=== PATIENT | female | born 1980 | race Caucasian/White ===

== ENCOUNTER → 2016-09-30 | Outpatient (CLI) | payer OTHER ==
[2016-09-30 08:12] LABS: CH 31.6; CHCM 34.1; HCT 43.5 % (34.0-46.0); HDW 2.45; HGB 14.5 gm/dL (11.4-16.0); MCHC 33.3 g/dL (31.0-37.0); Mean Platelet Volume 7.7; RBC 4.68 m/uL (3.80-5.40); RDW 12.6 % (11.5-15.5); WBC 3.8 k/uL (3.8-10.6)
[2016-09-30 08:19] LABS: INR 1.1 (<1.1); Partial Thromboplastin Time 26.7 sec (22.0-30.0); Prothrombin Time 10.9 sec (9.0-12.0)
[2016-09-30 08:21] LABS: ALT 39 U/L (9-52); AST 31 U/L (14-36); Alkaline Phosphatase 61 U/L (38-126); Anion Gap 9 mmol/L; Blood Urea Nitrogen 18 mg/dL (7-17); Calcium 9.2 mg/dL (8.4-10.2); Carbon Dioxide 25 mmol/L (22-30); Chloride 106 mmol/L (98-107); Glucose 90 mg/dL (74-99); Non-African American GFR(MDRD) >60 (>60 ml/min/1.73 sqM); Potassium 4.6 mmol/L (3.5-5.1); Sodium 140 mmol/L (137-145); Total Bilirubin 0.9 mg/dL (0.2-1.3); Total Protein 7.4 g/dL (6.3-8.2)
== END | disposition home or self-care (01) ==
LOC: LABWHC1 07:44
PROVIDERS: ATTEND Plastic Surgery Plastic Surgery Within the Head and Neck
DX: Z01.812 Encounter for preprocedural laboratory examination (principal); Z13.0 Encounter for screening for diseases of the blood and blood-forming organs and certain disorders involving the immune mechanism
CPT/HCPCS: 36415; 80053; 85027; 85610; 85730

== ENCOUNTER → 2017-03-07 | Outpatient (CLI) | payer OTHER ==
--- NOTE | 2017-03-07 10:10 | MR ---
EXAMINATION TYPE: MR shoulder RT wo con DATE OF EXAM: 03/07/2017 COMPARISON: 01/22/2010 HISTORY: 37-year-old female with right shoulder pain, RTC tear TECHNIQUE: Multiplanar, multisequence imaging of the right shoulder is performed without contrast. FINDINGS: Intermediate signal within the intracapsular portion of the long biceps tendon. The extracapsular por tion remains intact and appropriate situated along the bicipital groove. There is some intrasubstance tearing of the anterior third subscapularis tendon. The tendon is mildly thickened. AC joint is intact. No significant mass effect on the underlying cuff. Thickening and inhomogeneous signal within both supraspinatus and infraspinatus tendons. No high-grad e partial or full-thickness tear is seen. There is a mild subacromial/subdeltoid bursal effusion. No atrophy of the rotator cuff musculature. Evaluation of the glenohumeral joint shows new irregular signal within the superior labrum extending back from the biceps anchor. There is persistent tear of the posterior labrum extending down to the p osterior aspect of the inferior labrum. The previous extensive spinoglenoid groove and suprascapular notch paralabral cyst has resolved. Physiologic joint effusion. Subchondral cystic change along the anterior inferior glenoid suggesting developing osteoarthritic ch eriberto. No Hill-Sachs deformity or os acromiale. No suspicious bone marrow replacement. IMPRESSION: 1. Diffuse rotator cuff tendinosis. There is some intrasubstance tearing within the subscapularis ten don. No high-grade partial or full-thickness rotator cuff tear. No muscle atrophy. 2. Persistent posterior labral tear now with tear of the superior labrum extending back from the nafisa ps anchor. However, the previous large paralabral cyst has resolved. 3. Interval development of osteoarthritic changes with subchondral cysts along the anterior-inferior glenoid. 4. Mild subacromial/subdeltoid bursal effusion could be reactive or could represent a bursitis. 5. Mild intracapsular long head biceps tendinosis.
== END | disposition home or self-care (01) ==
LOC: RADMRIMAIN 07:32
PROVIDERS: ATTEND Orthopaedic Surgery
DX: S46.011A Strain of muscle(s) and tendon(s) of the rotator cuff of right shoulder, initial encounter (principal); S43.491A Other sprain of right shoulder joint, initial encounter; M67.813 Other specified disorders of tendon, right shoulder; M19.011 Primary osteoarthritis, right shoulder; M85.611 Other cyst of bone, right shoulder

== ENCOUNTER → 2018-07-14 | Outpatient (CLI) | payer OTHER ==
[2018-07-14 18:38] LABS: Albumin 4.5 g/dL (3.80-4.90); Albumin/Globulin Ratio 1.88 (1.60-3.17); Anion Gap 6.9 mmol/L (4.00-12.00); Carbon Dioxide 26.1 mmol/L (21.6-31.8); Globulin 2.4 g/dL (1.6-3.3); LDL Cholesterol,Calculated 67.6 mg/dL (0.0-131.0); Potassium 4.7 mmol/L (3.5-5.5); Total Bilirubin 0.9 mg/dL (0.3-1.2); Total Protein 6.9 g/dL (6.2-8.2); VLDL Calculation 13.4 mg/dL (5.00-40.00)
== END ==
LOC: LABWHC1 08:18
PROVIDERS: ATTEND Family Medicine
DX: Z00.00 Encounter for general adult medical examination without abnormal findings (principal)
CPT/HCPCS: 36415; 80053; 80061; 84443

== ENCOUNTER → 2018-07-14 | Outpatient (CLI) | payer OTHER ==
[2018-07-14 08:58] LABS: Basophils # (A) 0.1 k/uL (0-0.2); Basophils % (A) 1 %; Eosinophils # (A) 0.2 k/uL (0-0.7); Eosinophils % (A) 4 %; HGB 13.8 gm/dL (11.4-16.0); Lymphocytes # (A) 1.5 k/uL (1.0-4.8); Lymphocytes % (A) 35 %; MCH 29.8 pg (25.0-35.0); MCHC 32.1 g/dL (31.0-37.0); MCV 92.8 fL (80.0-100.0); Mean Platelet Volume 8.5; Monocytes # (A) 0.2 k/uL (0-1.0); Monocytes % (A) 5 %; Neutrophils # (A) 2.3 k/uL (1.3-7.7); Neutrophils % (A) 53 %; Platelet Count 213 k/uL (150-450); RBC 4.64 m/uL (3.80-5.40); RDW 12.6 % (11.5-15.5); WBC 4.3 k/uL (3.8-10.6)
== END | disposition home or self-care (01) ==
LOC: LABPAT 08:15
PROVIDERS: ATTEND Obstetrics & Gynecology
DX: Z01.812 Encounter for preprocedural laboratory examination (principal); Z64.0 Problems related to unwanted pregnancy
CPT/HCPCS: 85025

== ENCOUNTER → 2019-06-18 | Outpatient (CLI) | payer OTHER ==
[2019-06-18 11:46] LABS: HCT 42.4 % (34.0-46.0); MCH 31.7 pg (25.0-35.0); MCHC 32.9 g/dL (31.0-37.0); MCV 96.3 fL (80.0-100.0); Platelet Count 215 k/uL (150-450); RBC 4.41 m/uL (3.80-5.40); RDW 12.1 % (11.5-15.5); WBC 4.4 k/uL (3.8-10.6)
[2019-06-18 11:51] LABS: Partial Thromboplastin Time 26.4 sec (22.0-30.0); Prothrombin Time 10.2 sec (9.0-12.0)
[2019-06-18 17:04] LABS: African American GFR (CKD) 82.2 (60.0-200.0); Albumin 4.9 g/dL (3.80-4.90); Albumin/Globulin Ratio 2.04 (1.60-3.17); Anion Gap 7.9 mmol/L (4.00-12.00); Calcium 9.4 mg/dL (8.7-10.3); Carbon Dioxide 28.1 mmol/L (21.6-31.8); Globulin 2.4 g/dL (1.6-3.3); Non-African American GFR(CKD) 70.9 (60.0-200.0); Potassium 4.1 mmol/L (3.5-5.5); Total Bilirubin 0.5 mg/dL (0.3-1.2); Total Protein 7.3 g/dL (6.2-8.2)
== END | disposition home or self-care (01) ==
LOC: LABWHC1 10:23
PROVIDERS: ATTEND Plastic Surgery Plastic Surgery Within the Head and Neck
DX: D64.9 Anemia, unspecified (principal); E87.8 Other disorders of electrolyte and fluid balance, not elsewhere classified; D68.9 Coagulation defect, unspecified
CPT/HCPCS: 36415; 80053; 85027; 85610; 85730

== ENCOUNTER → 2020-10-17 | Outpatient (CLI) | payer BC ==
[2020-10-17 16:20] LABS: Basophils # (A) 0.05 X 10*3/uL (0.00-0.10); Basophils % (A) 1.2 %; Eosinophils # (A) 0.14 X 10*3/uL (0.04-0.35); Eosinophils % (A) 3.3 %; HCT 42.4 % (37.2-46.3); HGB 13.9 g/dL (12.0-15.0); Lymphocytes # (A) 1.56 X 10*3/uL (0.90-5.00); Lymphocytes % (A) 36.6 %; MCH 32.3 pg (27.0-32.0); MCHC 32.8 g/dL (32.0-37.0); MCV 98.6 fL (80.0-97.0); Mean Platelet Volume 12.2 fL (9.5-12.2); Monocytes # (A) 0.43 X 10*3/uL (0.20-1.00); Monocytes % (A) 10.1 %; Neutrophils # (A) 2.07 X 10*3/uL (1.80-7.70); Neutrophils % (A) 48.6 %; Platelet Count 212 X 10*3/uL (140-440); RDW 12.6 % (11.5-14.5); WBC 4.26 X 10*3/uL (4.50-10.00)
[2020-10-17 22:45] LABS: African American GFR (CKD) 92.7 (60.0-200.0); Albumin 4.5 g/dL (3.80-4.90); Albumin/Globulin Ratio 1.8 (1.60-3.17); Anion Gap 9.3 mmol/L (4.00-12.00); BUN/Creat Ratio 22.22 Ratio (12.00-20.00); Calcium 8.8 mg/dL (8.7-10.3); Carbon Dioxide 22.7 mmol/L (21.6-31.8); Chol/HDL Ratio 1.87; Globulin 2.5 g/dL (1.6-3.3); LDL Cholesterol,Calculated 82.4 mg/dL (0.0-131.0); Potassium 4.8 mmol/L (3.5-5.5); Total Bilirubin 0.7 mg/dL (0.2-1.2); VLDL Calculation 14.6 mg/dL (5.00-40.00)
== END | disposition home or self-care (01) ==
LOC: LABWHC1 08:53
PROVIDERS: ATTEND Family Medicine
DX: Z00.00 Encounter for general adult medical examination without abnormal findings (principal)
CPT/HCPCS: 36415; 80053; 80061; 83036; 84443; 85025

== ENCOUNTER → 2020-10-29 | Outpatient (CLI) | payer BC ==
--- NOTE | 2020-10-29 18:00 | US ---
EXAMINATION TYPE: US pelvic complete DATE OF EXAM: 10/29/2020 COMPARISON: NONE CLINICAL HISTORY: R10.9 ABD PAIN. Generalized RUQ pain, IUD TECHNIQUE: Transabdominal (TA). Date of LMP: 09/26/2020, EXAM MEASUREMENTS: Uterus: 8.2 x 5.7 x 4.6 cm Endometrial Stripe: 0.4 cm Right Ovary: 3.9 x 2.1 x 3.0 cm Left Ovary: 3.6 x 2.3 x 2.7 cm 1. Uterus: Anteverted wnl 2. Endometrium: wnl, IUD visualized in endometrial canal 3. Right Ovary: follicles seen 4. Left Ovary: follicles seen 5. Bilateral Adnexa: wnl 6. Posterior cul-de-sac: no free fluid IMPRESSION: IUD appears in good position. No adnexal mass or free fluid.
--- NOTE | 2020-10-29 18:26 | US ---
EXAMINATION TYPE: US abdomen complete DATE OF EXAM: 10/29/2020 COMPARISON: NONE CLINICAL HISTORY: R10.9 ABD PAIN. Generalized pain EXAM MEASUREMENTS: Liver Length: 16.8 cm Gallbladder Wall: 0.2 cm CBD: 0.4 cm Spleen: 10.6 cm Right Kidney: 10.9 x 5.4 x 5.4 cm Left Kidney: 11.2 x 5.3 x 4.8 cm Pancreas: wnl Liver: wnl Gallbladder: wnl Evidence for sonographic Bowen's sign: neg CBD: wnl Spleen: wnl Right Kidney: No hydronephrosis or masses seen Left Kidney: No hydronephrosis or masses seen Upper IVC: wnl Abd Aorta: Distal portion obscured by overlying bowel gas IMPRESSION: Negative complete abdominal sonogram. No gallstones or dilated ducts.
== END | disposition home or self-care (01) ==
LOC: RADUSWWP 16:32
PROVIDERS: ATTEND Family Medicine
DX: R10.84 Generalized abdominal pain (principal)
CPT/HCPCS: 76700; 76856